=== PATIENT | female | born 1945 | race Caucasian/White ===

== ENCOUNTER 2020-02-24 17:01 | Inpatient (IN) | payer MEDICARE, BC ==
[~2020-02-24] VITALS: Ht 165.1 cm; Wt 61.8 kg
[2020-02-24] MEDS ORDERED: ALPRAZOLAM 0.50.5 M1 PO (18:01)
[2020-02-24] MEDS ORDERED: AMITRIPTYLINE H50 M2 PO (18:02)
[2020-02-24] MEDS ORDERED: ASA81BEC PO (18:03)
[2020-02-24] MEDS ORDERED: LIPITOR80 MG PO (18:04)
[2020-02-24] MEDS ORDERED: PLAVIX 75 MG TA75 MG PO (18:04)
[2020-02-24] MEDS ORDERED: LUNESTA3 MG PO (18:05)
[2020-02-24] MEDS ORDERED: HYDROCHLOROTHIA25 M2 PO (18:06)
[2020-02-24] MEDS ORDERED: COZAAR 25 MG TA25 M1 PO (18:07)
[2020-02-24] MEDS ORDERED: OXYCODONE HCL10 MG PO (18:09)
[2020-02-24] MEDS ORDERED: PROTONIX40 M2 PO (18:10)
[2020-02-24] MEDS ORDERED: FLOMAX0.4 MG PO (18:11)
[2020-02-24] MEDS ORDERED: TIZANIDINE HCL4 M1 PO (18:12)
[2020-02-24 20:00] VITALS: BP 154/93
[2020-02-25 04:46] LABS: HEMATOCRIT 37.6 % (37.0-47.0); HEMOGLOBIN 12.4 gm/dL (12.0-15.0); MCH 29.2 pg (26.0-34.0); MCV 88.5 fL (80.0-100.0); MPV 7.2 fl. (7.2-11.1); RBC 4.25 mil/uL (4.20-5.00); WBC 12.7 thou/uL (4.0-11.0)
[2020-02-25 05:10] LABS: CALCIUM 9.4 mg/dL (8.5-10.1); CREATININE 0.7 mg/dL (0.6-1.3); POTASSIUM 3.9 mmol/L (3.5-5.1)
--- NOTE | 2020-02-25 05:34 | NUR ---
PT ARRIVED VIA FROM [facility] AT 1915. ALERT AND ORIENTED X 1 AND FORGETFUL. ANXIOUS AT TIMES. CVA WITH LEFT SIDE WEAKNESS. PT WANTS PILLS CRUSHED IN APPLESAUCE. MAX ASSIST X 2 PERSON. NEEDS CUEING TO MOVE LEFT LEG. UP WITH WALKER TO [facility] X 1. VOIDED AND HAD LARGE SOFT BM. PULLUPS. PT HAS CHRONIC POST CONCUSSIVE HEADACHE. SCHEDULED MEDS GIVEN. SPOKE WITH AND INFORMED OF ARRIVAL. QUESTIONS ANSWERED. PT SLEPT MOST OF THE NIGHT. USING CALL LIGHT APPROPRIATELY. BED ALARM ON.
[2020-02-25 07:50] VITALS: BP 106/60
--- NOTE | 2020-02-25 10:11 | NUR ---
Nutrition: Pt admitted to rehab with CVA. Wt: 133#, pt stated UBW is ~131#. Heart Healthy diet. Pt stated she is eating well. stated they don't moreau foods, they eat mainly fresh. We discussed the Mediterranean, anti-inflammatory, heart healthy diets with handouts. agreeable to info. No albumin recorded. Consider mild risk. Will follow weekly.
--- NOTE | 2020-02-25 14:27 | NUR ---
INITIAL ASSESSMENT: PATIENT ADMITTED TO THE [facility] ON 02/24/20 WITH A DIAGNOSIS OF RIGHT CVA. PT HAS HX OF DEMENTIA. PT'S SPOUSE INFORMS THAT PRIOR TO ADMIT PT WAS INDEPENDENT WITH ADL'S. PT USED A WALKER OR CANE FOR MOBILITY 'SHE USUALLY USED A WALKER IN THE MORNING AND CANE IN THE AFTERNOON. PT HAS PAST HX OF HH WITH [facility] AT HOME. PT HAS HX OF SNF AT [facility]. CM ORIENTED PT AND SPOUSE TO THE REHAB UNIT AND PROCESSES, RESIDENTS RIGHTS INFO, TEAM CONFRENCE, AND TO THE ROLE OF CM. CM WILL REMAIN AVAILABLE TO ASSIST AND FOLLOW NEEDED.
--- NOTE | 2020-02-25 16:23 | NUR ---
PATIENT COMPLETED THERAPIES ORDERED. UP WITH 2, GAIT BELT AND A WALKER; PATIENT NOTED TO DRAG LEFT LEG WHEN UP. PATIENT VOIDED 525MLS AT 1145 THIS AFTERNOON WHILE WORKING WITH OT. PATIENT WAS PLACED BACK ON BSC THIS AFTERNOON BUT STATED AT THE TIME SHE COULD NOT VOID. BLADDER SCAN SHOWING 295MLS AT 1600. DR. PERRIN NOTIFIED THIS AM OF RIGHT RIB PAIN AND LEFT AC SWELLING FROM WHAT PATIENT STATED WAS A PREVIOUS IV SITE. ORDERS FOR XRAY TO BE DONE, XRAY HERE THIS EVENING TO COMPLETE. SCHED XANAX AND OXY IR GIVEN ORDERED. HERE THIS SHIFT, DPOA/ADVANCE DIRECTIVE PAPERS BROUGHT IN AND PLACED ON CHART.
[2020-02-25 20:15] VITALS: BP 167/91
[2020-02-25 21:30] VITALS: BP 136/77
--- NOTE | 2020-02-26 01:23 | NUR ---
AT 2030, PT HAD EPISODE OF PSEUDOSEIZURE. PT HAD BLANK STARE AND WAS SLOW TO RESPOND. PT IMMEDIATELY HAD TREMORS AND SHAKING TO ARMS, BUT MOSTLY RIGHT ARM. NO OTHER SYMPTOMS AROSE. PRECAUTIONS TAKEN. TREMORS LASTED 15-20 MINUTES. PT SLOWLY IMPROVED AND FELT BETTER. CONTACTED PER PT REQUEST. STATES THAT PT HAS THESE WEEKLY AND MAY BE TRIGGERED BY PAIN. PT HAD C/O MARTINEZ AND RIGHT RIB PAIN JUST PRIOR TO THIS EPISODE. PT CLOSELY OBSERVED FOR SHORT TIME AND THEN GIVEN XANAX AND OXY. NO FURTHER ISSUES AFTER FEELING BETTER. DR ANAND WAS NOTIFIED OF OCCURANCE. PT RESTING AT THIS TIME. WILL CONTINUE TO MONITOR.
--- NOTE | 2020-02-26 05:33 | NUR ---
ASSUMED CARES AT 1920. ALERT AND ORIENTED BUT CAN BE ANXIOUS AND FORGETFUL. PT REQUESTS THAT PILLS BE CRUSHED IN APPLESAUCE. MOD ASSIST WITH GAIT BELT. CUEING NEEDED TO MAINTENANCE TEAM MEMBER LEFT FOOT WITH TRANSFERS. UP TO BSC. SLEPT WELL REST OF THE NIGHT. CALL LIGHT IN REACH AND BED ALARM ON.
[2020-02-26 08:00] VITALS: BP 103/66
[2020-02-26 14:22] LABS: ABSOLUTE BASOPHILS 0.1 thou/uL (0.0-0.2); ABSOLUTE EOSINOPHILS 0.2 thou/uL (0.0-0.7); ABSOLUTE LYMPHOCYTES 1.6 thou/uL (0.8-5.3); ABSOLUTE MONOCYTES 0.8 thou/uL (0.0-1.2); ABSOLUTE NEUTROPHILS 12.2 thou/uL (1.6-8.1); BASOPHILS 0.6 %; EOSINOPHILS 1.6 %; HEMATOCRIT 38.6 % (37.0-47.0); HEMOGLOBIN 12.7 gm/dL (12.0-15.0); LYMPHOCYTES 10.4 %; MCH 29.4 pg (26.0-34.0); MCHC 32.9 g/dL (28.0-37.0); MCV 89.4 fL (80.0-100.0); MONOCYTES 5.4 %; MPV 7.4 fl. (7.2-11.1); NUCLEATED RBCS 0 /100WBC; PLATELET COUNT* 470 thou/uL (150-400); RBC 4.32 mil/uL (4.20-5.00); RDW-CV 15.1 % (10.5-14.5); WBC 14.9 thou/uL (4.0-11.0)
[2020-02-26 14:46] LABS: CALCIUM 9.3 mg/dL (8.5-10.1); CREATININE 0.8 mg/dL (0.6-1.3); POTASSIUM 4.1 mmol/L (3.5-5.1)
--- NOTE | 2020-02-26 16:09 | NUR ---
ASSUMED CARE OF PATIENT THIS AM AT APOXIMATELY 0915. AGREE WITH AM ASSESSMENT.
--- NOTE | 2020-02-26 16:22 | NUR ---
ALERT AND ORIENTED X4 WITH PERIODS OF FORGETFULNESS. UP WITH MAX ASSIST OF 1 GAIT BELT AND WALKER. ON SCHEDULED PAIN MED TO HELP WITH PAIN. MEDICATION GIVEN FOR CONSTIPATION WITH NO RESULTS YET. C/O NAUSEA AND NEW NAUSEA MEDICATION GIVEN AND HELPFUL. DR NOTIFIED OF ABNORMAL LAB RESULTS. CALL LIGHT WITHIN REACH. FALL PRECAUTIONS IN PLACE BED ALARM AND CHAIR ALARM USED.
[2020-02-26 20:30] VITALS: BP 123/66
--- NOTE | 2020-02-26 20:30 | NUR ---
VERY ANXIOUS, NEEDY AND DEMANDING. VOMITED SMALL AMOUNT OF PARTIALLY DIGESTED FOOD. CALL LIGHT WITHIN REACH. PATIENT STATES DOESN'T KNOW HOW TO USE THE CALL LIGHT AND DOESN'T KNOW HOW TO USE THE TV REMOTE. PATIENT INSTRUCTED ON HOW TO USE THE CALL LIGHT AND TV REMOTE. STATES RIGHT RIB PAINT AT A "8".
[2020-02-26 21:53] LABS: URINE BILIRUBIN NEGATIVE (Negative); URINE BLOOD 1+ (Negative); URINE CLARITY CLOUDY; URINE COLOR YELLOW; URINE GLUCOSE-RANDOM NEGATIVE (Negative); URINE KETONES NEGATIVE (Negative); URINE LEUKOCYTES-REFLEX 3+ (Negative); URINE NITRITE-REFLEX POSITIVE (Negative); URINE PROTEIN NEGATIVE (Negative); URINE UROBILINOGEN 0.2 E.U./dl (0.2-1.0)
[2020-02-26 21:58] LABS: SQUAMOUS 0-3 Few /LPF (0-3)
[2020-02-26 21:59] LABS: BACTERIA-REFLEX >30 Many /HPF (None Seen); CASTS None Seen /LPF (None Seen); CRYSTALS None Seen /LPF (None Seen); URINE RBC 0-2 Rare /HPF (0-2); URINE WBC-REFLEX >25 Many /HPF (0-5)
--- NOTE | 2020-02-27 05:20 | NUR ---
NO MORE NAUSEA/VOMITING. UP X ONE DURING THE NIGHT TO THE BESIDE COMMODE. HOURLY ROUNDING IN PROGRESS.
[2020-02-27 08:28] VITALS: BP 143/72
--- NOTE | 2020-02-27 13:24 | CON ---
[address] [address] CONSULTATION Name: AL QUEZADA Room: [address] IN ..#: [id number] Admission: 02/24/20 Attend Phys: Emanuel Arnold MD Discharge: Date of : 41 Report #: [id number] THIS REPORT FOR: cc: Freedom Fletcher MD, Anthony MD ~ Pallavi Alaniz DO NEUROLOGY CONSULT HISTORY OF PRESENT ILLNESS: The patient is a 74-year-old female who was initially seen at [place] for stroke. She woke on 02/20 with severe headache, left-sided facial numbness, left upper and lower extremity weakness. She was taken to [place] [facility]. She was not given t-PA given the timeframe of the symptoms. After the stroke workup was completed, she was transferred to rehabilitation at [facility] for therapy. Neurology was asked to see this patient because she has a history of pseudoseizures. She takes Xanax for this. Apparently, she also has a history of dementia. PAST MEDICAL HISTORY: Stroke, postconcussive headaches, gastroparesis, posttraumatic stress disorder, dementia, pseudoseizures, C. difficile, claustrophobia. PAST SURGICAL HISTORY: Cholecystectomy, hysterectomy, appendectomy, right hip surgery, mastoid surgery, cataract surgery. MEDICATIONS: Amitriptyline 50 mg at bedtime, aspirin 81 mg daily, atorvastatin 80 mg at bedtime, Plavix 75 mg daily, Colace 100 mg b.i.d., Voltaren gel p.r.n., hydrochlorothiazide 25 mg daily, lidocaine patch at bedtime, losartan 25 mg daily, oxycodone 20 mg q.i.d., pantoprazole 40 mg daily, MiraLax 17 grams b.i.d., tamsulosin 0.4 mg daily, tizanidine 4 mg b.i.d., alprazolam 0.5 mg q.i.d., Ambien 5 mg at bedtime. ALLERGIES: CHOLESTYRAMINE, CHLORDIAZEPOXIDE, AMOXICILLIN, ACETAMINOPHEN, AMITRIPTYLINE, AMPICILLIN, CETIRIZINE, CIPROFLOXACIN, CLINDAMYCIN, DIPHENHYDRAMINE, ERYTHROMYCIN, FEXOFENADINE, METHYLPREDNISOLONE, OXYCODONE, PAROXETINE, SUMATRIPTAN AND TOPIRAMATE. PHYSICAL EXAMINATION: VITAL SIGNS: Temperature is 36.7, pulse rate 92, respiratory rate 16, blood pressure 103/66, bedside pulse oximetry 94% on room air. LABORATORY DATA: Hematology: White blood cell count 12.7, hemoglobin 12.4, hematocrit 37.6, MCV 88.5, platelet count 432,000. Chemistry: Sodium 137, potassium 3.9, chloride 101, carbon dioxide 31, BUN 10, creatinine 0.7, GFR 81, [place] [id number] CONSULTATION Name: AL QUEZADA Room: [address] IN [facility]#: [id number] Admission: 02/24/20 Attend Phys: Emanuel Arnold MD Discharge: Date of : 41 Report #: [id number] glucose 106, calcium 9.4. NEUROLOGIC EXAMINATION: Cranial nerves 2-12 were grossly intact. Motor exam demonstrates a relative left hemiparesis. She had decreased fine finger movements on the left and appeared to have general weakness in the left upper extremity from the shoulder to the hand. In the lower extremity, she was able to raise the right leg off the bed. She did not raise the left leg off the bed, but this was effort related. As I placed my hand under both heels and she made no attempt to press her right heel into the bed as she tried to lift her left leg. Reflexes are symmetrical throughout. The right plantar response flexor. The left is mute. Coordination demonstrated no evidence of dysmetria. Gait was not tested because of safety reasons. IMPRESSION: This patient is status post stroke and is currently on a combination of aspirin and Plavix, which she should continue. Neurology was consulted for her history of pseudoseizures. These are typically a subconscious manifestation of stress. I tried to call her for more information, but no one picked up the home phone, so I did not leave a message. I did review the records from [place], which stated that she had a history of pseudoseizures, but this was treated with Xanax, which she is currently taking here in the hospital. For these episodes, I do not recommend anything further than what she is taking, Xanax 0.5 mg 4 times a day. Should she have any episodes, please feel free to call the Neurology service and we can reevaluate her at that time. Please understand that pseudoseizures or nonepileptic events are not true electrical seizures, but typically a subconscious manifestation of stress, which in this case may be compounded by the patient's history of dementia. I thank you for your kind referral of the patient and we will follow her as needed. <ELECTRONICALLY SIGNED> By: Pallavi Alaniz DO 02/27/20 [id number] Doug Alaniz DO /nt
--- NOTE | 2020-02-27 18:17 | NUR ---
ASSESSMENT COMPLETED DOCUMENTED THIS MORNING. PATIENT WAS OBSERVED WITH THERAPY THIS MORNING. MULTIPLE TIMES THE THERAPIST REQUESTED PATIENT TO STAND OR EVEN DO SITTING EXERCISES SHE WOULD CLOSE HER EYES AND NOT RESPOND, ACTING THOUGH SHE WERE ASLEEP. THERAPY HAD PATIENT IN THE WC ON THE WAY TO THE GYM AND SHE STOPPED COOPERATING AND CLOSED HER EYES. THERAPY WAS SHAKING HER SHOULDER AND SPEAKING HER NAME LOUDLY, NURSING WAS CALLED TO ASSESS AND REPEATED SHAKING HER SHOULDER AND SPEAKING HER NAME LOUDLY. PATIENT MUTTERED WITH HER EYES CLOSED...YOU AREN'T GOING TO GET ME TO RESPOND BY BEING MEAN TO ME, I HAVE SEIZURES YOU NEED TO SPEAKK TO DENICE. NURSING INSTRUCTED HER THAT WHEN SOMEONE APPEARS TO BE UNRESPONSIVE WE SHAKE AND SHOUT. SHE APOLOGIZED FOR HER BEHAVIOR AND WAS TAKEN TO HER ROOM. VS 120/75-89-95% PATIENT C/O NAUSEA AND WAS OBSERVED WRETCHING PRIOR TO SUPPER. ZOFRAN 4MG WAS GIVEN AT 1700. HAS BEEN TAKING A BOTTLE OF MAG CITRATE SLOWLY TO FACILITATE A BOWEL MOVEMENT OVER THE PAST 1-2 HOURS.
[2020-02-27 20:00] VITALS: BP 112/82
--- NOTE | 2020-02-28 05:02 | NUR ---
ASSUMED PT CARE AT 1930. PT AWAKE AND ALERT TO SELF, VERY FORGETFUL. PT CALLED OUT OVER A DOZEN TIMES IN THE FIRST TWO HOURS OF THE SHIFT. SPITTING UP SMALL AMOUNTS OF EMESIS INTO BLUE BAG. ZOFRAN GIVEN. PT HAD THREE LARGE LIQUID STOOLS. UP TO BSC WITH ASSIST OF ONE, GAIT BELT AND WALKER. NEEDS CUEING TO MOVE HER FEET AND WHICH WAY TO TURN TO GET ON COMMODE AND BACK INTO BED. PT EXTREMELY ANXIOUS AND NEEDY, BECAME MORE RATIONAL THE NIGHT PROGRESSED. PT ASKS THE SAME QUESTIONS REPETITIVELY WHICH HAVE JUST BEEN ANSWERED. C/O PAIN IN HEAD AND RIBS 09/27 AT HS. ON SCHEDULED OXY IR AND XANAX. USES CALL LIGHT APPROPRIATELY. CALL LIGHT IN REACH, BED ALARM ON FOR SAFETY. HOURLY ROUNDING IN PROGRESS, WILL CONTINUE TO MONITOR.
[2020-02-28 07:30] VITALS: BP 115/58
--- NOTE | 2020-02-28 18:49 | NUR ---
ASSESSMENT COMPLETED DOCUMENTED THIS MORNING. PATIENT HAS BEEN UP IN RECLINER AT THE BEDSIDE X2 TODAY AND TOLERATED WELL. HAS USED THE BSC FOR TOILETING AND REMAINED CONT OF B&B WITH SMALL AMOUNT OF STOOL EACH TIME SHE HAS VOIDED TODAY. PATIENT STATES SHE FEELS MUCH BETTER TODAY SINCE HER BOWELS MOVED SO WELL LAST NIGHT. NO BEHAVIOR ISSUES, HAS BEEN COOPERATIVE AND APPROPRIATE, AT BEDSIDE.
[2020-02-28 20:00] VITALS: BP 105/61
--- NOTE | 2020-02-29 05:02 | NUR ---
ASSUMED PT CARE AT 1930. PT ALERT AND ORIENTED BUT FORGETFUL. HX OF CVA, LEFT SIDED WEAKNESS. PT SITTING IN RECLINER AT SHIFT CHANGE. UP WITH ASSIST OF ONE, GAIT BELT AND WALKER TO [facility] TO VOID. STOOL X1 THIS SHIFT, CONTINENT OF BOWEL AND BLADDER. TAKES PILLS WHOLE IN APPLESAUCE WITHOUT DIFFICULTY. PT TO SLEEP BY 2100 AND SLEPT WELL UNTIL 0300. PT AWAKENED STATING SHE COULDN'T BREATHE AND THAT SHE WAS HAVING A PANIC ATTACK. PT PLACED ON 2L 02 PER NC. VITAL SIGNS 124/96, HR 73. DR. SALAZAR CONTACTED, ORDER RECEIVED TO GIVE 0730 DOSE OF XANAX EARLY. PT SPOKE WITH HER ON THE PHONE AND AFTER TAKING THE XANAX WENT BACK TO SLEEP. CALL LIGHT IN REACH, BED ALARM ON FOR SAFETY. HOURLY ROUNDING IN PROGRESS, WILL CONTINUE TO MONITOR.
[2020-02-29 08:00] VITALS: BP 136/70
--- NOTE | 2020-02-29 14:40 | NUR ---
CM SPOKE TO THE PT AND HER SPOUSE TO DISUCSS ANY QUESTIONS OR CONCERNS THAT THEY MAY HAVE FOR THIS WEEKS TEAM CONFRENCE MEETING. PT AND SPOUSE HAVE NO QUESTIONS OR CONCERNS AT THIS TIME, BUT INFORM THAT ARE HAPPY WITH THE STAFF AND THE PROGRESS THE PT HAS MADE. CM AND PHYSISCIAN TO F/U WITH PT AND SPOUSE AFTER SATURDAY'S MEETING. CM WILL REMAIN AVAILABLE TO ASSIST AND FOLLOW NEEDED.
--- NOTE | 2020-02-29 16:40 | NUR ---
ALERT AND ORIENTED X4 WITH PERIODS OF FORGETFULNESS. UP WITH 1 ASSIST, GAIT BELT AND WALKER. ON SCHEDULED PAIN MEDICATION AND XANAX. CONTINENT OF BOWEL AND BLADDER. HAD 1 LOOSE STOOL TODAY. NAUSEA MEDICATION GIVEN X1 AND HELPFUL. TAKES PILLS WHOLE 1 AT A TIME IN APPLESAUCE. USES CALL LIGHT FOR ASSIST. FALL PRECAUTIONS IN PLACE. BED ALARM AND CHAIR ALARM USED.
[2020-02-29 19:00] VITALS: BP 125/66
--- NOTE | 2020-03-01 05:20 | NUR ---
ASSUMED PT CARE AT 1930. PT ALERT AND ORIENTED BUT FORGETFUL. PT UPSET AT BEGINNING OF SHIFT BECAUSE HER HAD TO GO HOME. PT REASSURED AND NO FURTHER PANIC ATTACKS. TAKES PILLS WHOLE WITH APPLESAUCE. SCHEDULED OXY IR AND XANAX. UP WITH ASSIST OF 1, GAIT BELT AND WALKER TO VOID. NO STOOL THIS SHIFT. C/O HEARTBURN AT HS, [place] GIVEN. USES CALL LIGHT FOR ASSIST. CALL LIGHT IN REACH, BED ALARM ON FOR SAFETY. HOURLY ROUNDING IN PROGRESS, WILL CONTINUE TO MONITOR.
[2020-03-01 07:50] VITALS: BP 144/76
[2020-03-01 16:15] VITALS: BP 124/84
--- NOTE | 2020-03-01 16:45 | NUR ---
PATIENT COMPLETED THERAPIES ORDERED. TELE PSYCH EVAL FOR PANIC ATTACKS, RECOMMENDATIONS MADE AND Christoph ROSALES NP NOTIFIED AND ORDERS RECEIVED. PATIENT HERE THIS SHIFT, PATIENT CALLING OUT AT 1600 STATING SHE COULDNT BREATH. PATIENT STATED TO NURSE SHE WAS HAVING A PANIC ATTACK. VITALS STABLE AND PATIENT GIVEN SCHED XANAX/ OXY IR. PATIENT STATED SHE DIDNT KNOW WHY SHE WAS PANICKING WHEN HER WAS STILL HERE. PATIENT DISTRACTED AND SITTING UP IN CHAIR WITH . NO BM NOTED THIS SHIFT. VOIDING VIA BSC. PATIENT C/O VAGINA BEING SORE LIKE SHE HAD A CUT, PATIENT INFORMED THAT WHEN SHE GOT BACK INTO BED THAT NURSE WOULD OBSERVE. PATIENT CONCERNED ABOUT TIME OF NEW MED. Christoph ROSALES NP NOTIFIED AND ORDERS FOR ONE TIME VISTARIL TO BE GIVEN AT 1800, PATIENT AND UPDATED ON PLAN OF CARE.
[2020-03-01 21:00] VITALS: BP 114/75
[2020-03-02 04:16] LABS: HEMATOCRIT 34.3 % (37.0-47.0); HEMOGLOBIN 11.6 gm/dL (12.0-15.0); MCH 29.6 pg (26.0-34.0); MCHC 33.7 g/dL (28.0-37.0); MCV 87.7 fL (80.0-100.0); MPV 7.7 fl. (7.2-11.1); RBC 3.91 mil/uL (4.20-5.00); RDW-CV 14.2 % (10.5-14.5); WBC 8.8 thou/uL (4.0-11.0)
[2020-03-02 04:59] LABS: CALCIUM 9.3 mg/dL (8.5-10.1); CREATININE 0.8 mg/dL (0.6-1.3); POTASSIUM 4.1 mmol/L (3.5-5.1)
--- NOTE | 2020-03-02 05:47 | NUR ---
ASSUMED CARES AT 1920. ALERT AND ORIENTED BUT CAN BE FORGETFUL. NEEDY AND CAN EASILY GET ANXIOUS. PT SPENT BEGINNING OF NIGHT WITH NAUSEA AND BELCHING. HAD FEW EMESIS OF 50-100 CC OF UNDIGESTED FOOD. ZOFRAN GIVEN WITH LITTLE RELIEF. OBTAINED ORDER FOR PHENERGAN. PT FINALLY ABLE TO SETTLE DOWN AND SLEPT AT MIDNIGHT. WOKE UP FEW HRS LATER TO VOID AND STILL HAD NAUSEA. MIN ASSIST WITH GAIT BELT UP TO BSC. NEEDS ASSIST WITH DRESSING. LEFT LEG WEAKNESS IMPROVING. LEFT HAND STILL WEAK TO GRASP ITEMS. PT C/O SORENESS AND BURNING TO VAGINAL/LABIA AREA WITH VOIDING. NO OPEN SORES SEEN. BARRIER CRM APPLIED FOR COMFORT. PT SLEPT OTHERWISE. CALL LIGHT IN REACH AND BED ALARM ON.
[2020-03-02 07:40] VITALS: BP 115/64
--- NOTE | 2020-03-02 17:48 | NUR ---
PATIENT COMPLETED THERAPIES ORDERED. SCHED XANAX AND OXY IR GIVEN ORDERED. PATIENT MORE TIRED TODAY. AT BEDSIDE THIS SHIFT, PLAN OF CARE AND TEAM MEETING DISCUSSED WITH BY CM. PATIENT MORE CALM THIS SHIFT. MOM GIVEN. ZOFRAN GIVEN THIS SHIFT FOR NAUSEA, NO VOMITTING NOTED. PATIENT UP WITH ASSISTANCE OF 1 AND USE OF GAIT BELT AND WALKER.
[2020-03-02 20:00] VITALS: BP 117/69
--- NOTE | 2020-03-03 05:26 | NUR ---
ASSUMED CARE AT 1920L. SLEEPY BUT AWAKENS EASILY. FORGETFUL. C/O NAUSEA BUT NO VOMITING. ZOFRAN GIVEN. MIN ASSIST GB AND WALKER. UP TO BSC. PILLS WITH APPLESAUCE. C/O HEADACHE. SCHEDULED OXY GIVEN. SLEPT WELL. CALL LIGHT IN REACH AND BED ALARM ON.
[2020-03-03 09:29] VITALS: BP 110/52
--- NOTE | 2020-03-03 15:29 | NUR ---
TEAM CONFRENCE MEETING HELD YESTERDAY. CM AND PHYSICIAN SPOKE TO THE PT AND HER SPOUSE TO DISCUSS MEETING AND PLAN TO RE-TEAM AND HAVE THE PT REMAIN ON THE UNIT FOR ANOTHER WEEK TO CONTINUE THERAPIES. PT AND SPOUSE IN AGREEMENT WITH THE PLAN. PT PROGRESSING TOWARDS GOALS, BUT BARRIERS ARE LEFT HEMIPARESIS, DECREASED MENTAL PROCESSING, AND DIFFUSE WEAKNESS. CM WILL REMAIN AVAILABLE TO ASSIST AND FOLLOW NEEDED.
--- NOTE | 2020-03-03 18:52 | NUR ---
ASSESSMENT COMPLETED DOCUMENTED THIS MORNING. PATIENT PARTICIPATING WITH THERAPY, REQUIRES MUCH CUEING, REMINDING AND INSTRUCTING HER "WHAT HER GOAL IS" WHEN SHE IS TRANSFERRING OR TOILETING. DROWSY/LETHARGIC MOST OF THE TIME. NO S/S OF PANIC ATTACKS NOTED.
[2020-03-03 20:00] VITALS: BP 109/59
--- NOTE | 2020-03-04 06:50 | NUR ---
ASSUMED PT CARE AT 1930. PT SLEEPY BUT ANSWERS QUESTIONS APPROPRIATELY. TOOK PM MEDS WHOLE WITH APPLESAUCE. PT UP TO BSC TO VOID X1. NO STOOL THIS SHIFT. PT SLEPT WELL OVERNIGHT. LEFT ARM AND LEG WEAKNESS. PT NEEDS CUEING TO TRANSFER FROM BED TO COMMODE WITH ASSIST OF ONE, GAITBELT AND WALKER. USES CALL LIGHT APPROPRIATELY. CALL LIGHT IN REACH, BED ALARM ON FOR SAFETY. HOURLY ROUNDING COMPLETE.
[2020-03-04 08:00] VITALS: BP 108/62
--- NOTE | 2020-03-04 10:34 | NUR ---
PT VERY DROWSY THIS AM. DID NOT EAT BREAKFAST BUT TOOK ALL ORAL MEDS. UNABLE TO PARTICIPATE IN THERAPY. SPOUSE HERE. RE EVAL BY TELEPSYCH CALLED IN AND NEUROOLOGY CONSULT CALLED IN. MESSAGE SENT TO HOSPITALIST REGARDING PATIENT STATUS.
--- NOTE | 2020-03-04 10:34 | NUR ---
0700 ASSUMED CARE OF PATIENT. SEE DOCUMENTED ASSESSMENT. PT IS AWAKE AND WANTS SCHEDULED PAIN MEDICATION ALTHOUGH SHE DENIES PAIN.
--- NOTE | 2020-03-04 15:21 | NUR ---
PATIENT MORE AWAKE AND INTERACTIVE WITH SPOUSE. STATES SHE IS HUNGRY.
--- NOTE | 2020-03-04 17:26 | NUR ---
PATIENT HAS NOT PROGRESSED TOWARDS GOALS. PT BECAME VERY SOMNALENT AFTER SCHEDULED 0730 XANAX AND OXY IR. UNABLE TO PARTICIPATE WITH THERAPIES. DR BLOOM SPOKE WITH PSYCHIATRIST AND MEDS HAVE BEEN ADJUSTED. NEURO CONSULTED AND HE HAS ORDERED HEAD CT. IV FLUIDS INITIATED AND PATIENT IS NOW UP IN THE CHAIR AND USED BSC. SHE HAS NOT RECEIVED ANY ANALGESICS SINCE THE 0730 OXY IR. SCOPALAMINE PATCH ALSO DISCONTINUED. URINE IS VERY CLOUDY AND FOUL SMELLING. NO BM THIS SHIFT. PT REFUSED HER MIRALAX THIS MORNING. SPOUSE HAS BEEN PRESENT MOST OF THE DAY AND SPOKE WITH DR BAEZ AND DR BLOOM.
[2020-03-04 20:00] VITALS: BP 125/78
--- NOTE | 2020-03-05 01:18 | NUR ---
ASSUMED CARE AT 1930. PATIENT WENT TO CT AROUND 1999 PER W/C. THEN FROM W/C > BSC THEN TO BED. MAX ASSIST OF 2, MUCH CUEING, GAIT BELT WALKER. AFTER RETURNING FROM CT, BECAME ANXIOUS. GIVEN HS MEDS, SEE MAR. DURING HS MED PASS, PATIENT DENIED PAIN, SO OXY DELAYED. PATIENT LATER C/O NOT WANTING TO WITHDRAW FROM THE OXY AND INSISTED ON IT, C/O ANXIETY AND PAIN. SEE MAR. ALL MEDICINES GIVEN PER ORDER, SEE MAR. PATIENT REASSURED REPEATEDLY THAT SHE HAD TAKEN ALL HER MEDS PER PHYSICAN ORDERS. PATIENT SPOKE WITH . WAS AWAKE AT 2300 ROUNDS, BUT ASLEEP ON MIDINIGHT ROUNDS. IVF INFUSING TO LT WRIST, SEE MAR. TAKES PILLS WHOLE WITH APPLESAUCE FOLLOWED BY THIN LIQUIDS. PATIENT DOES TURNS SELF. CALL LITE IN REACH. BED ALARM ON. HOURLY ROUNDS CONTINUE.
--- NOTE | 2020-03-05 05:33 | NUR ---
OBSERVED SLEEPING AT MIDNIGHT ROUNDS UNTIL AWAKENED BY LAB. LAB UNABLE TO OBTAIN THIS AM LABS. IV INFILTRATED TO LT WRIST AND DISCONTINUED. PATIENT NOW ABLE TO DRINK WATER AND IS FULLY AWAKE. WILL NOTIFY PROVIDER. UP TO VOID, MUCH IMPROVED WITH TRANSFERS LATER IN SHIFT THAN AT BEGINNING. DOING OWN HYGIENE WITH VOIDING. VOIDS LARGE AMOUNTS. NO C/O PAIN AT THIS TIME. HOURLY ROUNDS CONTINUE. BED ALARM ON. CALL LITE IN REACH.
[2020-03-05 07:30] VITALS: BP 115/60
[2020-03-05 08:02] LABS: CALCIUM 8.7 mg/dL (8.5-10.1); CREATININE 0.7 mg/dL (0.6-1.3); POTASSIUM 3.1 mmol/L (3.5-5.1)
--- NOTE | 2020-03-05 16:21 | NUR ---
PATIENT COMPLETED THERAPIES ORDERED. PATIENT MORE ALERT AND AWAKE THIS AFTERNOON. NEURO HERE THIS AM AND DR. REINA MICHEL, PATIENT PLACED BACK ON SCHED XANAX AND DEPAKOTE DC'D. PATIENT AND AWARE OF PLAN OF CARE. UP TO BSC WITH ASSISTANCE OF 1 AND GAIT BELT AND WALKER. PATIENT DID ATTEMPT TO HAVE A BM BUT WAS UNSUCCESSFUL. POTASSIUM REPLACED VIA ELEC PROTOCOL FOR LAB VALUE OF 3.1, REDRAW AT 1945. AT BEDSIDE, VERY SUPPORTIVE.
[2020-03-05 19:00] VITALS: BP 128/56
--- NOTE | 2020-03-05 22:59 | NUR ---
ASSUMED CARE AT 1930. PATIENT IN RECLINER UNTIL ABOUT 1999. TAKES PILLS WHOLE A COUPLE AT A TIME IN APPLESAUCE. SHE REMOVED HER HEARING AIDES AND PLACED IN HER CONTAINER WHICH WAS PUT INTO A PLASTIC BAG AND KEPT AT BEDSIDE FOR SAFE KEEPING. TOOK ALL MEDS SCHEDULED UNTIL 2099. REQUESTED TO TAKE XANAX AT 2100 HER HOME ROUTINE. SEE APR. ASSISTED PATIENT IN USING PHONE TO CALL , COULD NOT DO THIS AFTER REPEATED ORAL INSTRUCTIONS OF DIALING 9 THEN THE NUMBER WITHOUT THE AREA CODE. STREET CLOTHES REMOVED AND ASSISTED INTO HOSPITAL GOWN AT . WEARING BRIEF. REFUSED TO HAVE CHUX UNDER HER, SAYING IT WAS A LUMP, LIKE "SERA AND THE PEA." VOIDED PER BSC, UP WITH CUEING, GAIT BELT, WALKER. ABLE TO GET LEGS INTO BED HERSELF. MEDICATED FOR PAIN WITH SCHEDULED OXYIR. SEE MAR. HOURLY ROUNDS CONTINUE. BED ALARM ON. CALL LITE IN REACH.
--- NOTE | 2020-03-06 05:52 | NUR ---
OBSERVED RESTING WITH EYES CLOSED ON ROUNDS AFTER ABOUT 2300. GENTLE SNORING RESPS NOTED AT TIMES. NO FURTHER C/O PAIN. TURNS SELF IN BED. HOURLY ROUNDS CONTINUE. BED ALARM ON. CALL LITE IN REACH.
[2020-03-06 07:50] VITALS: BP 120/54
--- NOTE | 2020-03-06 16:26 | NUR ---
PATIENT UP TO CHAIR THIS SHIFT. UP WITH ASSISTANCE OF 1-2 AND USE OF GAIT BELT AND WALKER. PATIENT NOTED TO BE WEAKER THIS SHIFT, DR. HUANG AWARE. PATIENT NOTED TO DENICE KNEES UP AND DOWN WHILE ATTEMPTING TO TRANSFER. PATIENT UNABLE TO VOID THIS AM AND INTO AFTERNOON. BLADDER SCAN SHOWING 446MLS, DR. HUANG AWARE AND PREVIOUS STANDING ORDER FOR STARIGHT CATH >800MLS. PATIENT WAS ABLE TO VOID VERY LARGE AMOUNT LATE THIS AFTERNOON AND SMALL BM NOTED. SCHED OXY IR HELD THIS AM AND 1200 DOSE, PATIENT WAS NOTED TO BE VERY SLEEPY. SCHED XANAX GIVEN THIS EVENING SCHEDULED. PILLS WHOLE IN APPLESAUCE.
[2020-03-06 19:54] VITALS: BP 120/63
--- NOTE | 2020-03-06 22:48 | NUR ---
ASSUMED CARE AT 1920. PATIENT IN RECLINER UNTIL AROUND 2030. UP WITH MUCH CUEING, GAIT BELT, WALKER. VOIDED CLOUDY URINE PER BSC AFTER WAITING A LONG TIME, WHICH SHE STATES IS HER NORMAL. TAKES PILLS A COUPLE AT A TIME WITH APPLESAUCE. TURNS SELF. C/O NOT BEING ABLE TO USE THE PHONE RIGHT, BUT WAS ACTUALLY HOLDING TV REMOTE, AND COULD NOT IDENTIFY THAT IT WAS THE REMOTE NOT THE PHONE AFTER REPEATED ATTEMPTS. THIS NURSE THEN CALLED HER USING HOSPITAL PHONE, GAVE UPDATE, AND PATIENT SPOKE WITH FOR A WHILE. ASKS SAME QUESTIONS OVER AND OVER. ASKS IF SHE HAD HER SLEEPING PILL, WHICH HAS BEEN DISCONTINUED DUE TO EXCESSIVE DAYTIME SLEEPINESS. DID RECEIVE HS XANAX AND ALL MEDICINES ALLOWED PER ORDER. SEE MAR. DEEP BREATHING EXERCISES PRACTICED WITH PATIENT FOR RELAXATION. WANTS SOME LIGHTS ON IN ROOM. CALL LITE IN REACH. BED ALARM ON. HOURLY ROUNDS CONTINUE.
--- NOTE | 2020-03-07 05:35 | NUR ---
OBSERVED SLEEPING ON HOURLY ROUNDS FROM 2300 UNTIL NOW. SHE FELL ASLEEP SHORTLY AFTER THIS NURSE WROTE PREVIOUS NOTE. POSITIONS SELF. NO C/O PAIN THROUGH NIGHT. CALL LITE IN REACH. BED ALARM ON. HOURLY ROUNDS CONTINUE.
[2020-03-07 07:33] LABS: CALCIUM 8.4 mg/dL (8.5-10.1); CREATININE 0.6 mg/dL (0.6-1.3); MAGNESIUM 1.9 mg/dL (1.8-2.4); POTASSIUM 3.5 mmol/L (3.5-5.1)
[2020-03-07 08:00] VITALS: BP 117/58
--- NOTE | 2020-03-07 14:20 | NUR ---
CM SPOKE TO THE PT AND HER SPOUSE TO DISUCSS ANY QUESTIONS OR CONCERNS THAT THEY MAY HAVE FOR THIS WEEKS TEAM CONFRENCE MEETING. PT AND SPOUSE HAVE NO QUESTIONS OR CONCERNS AT THIS TIME. CM TO F/U WITH THE PT AND HER SPOUSE TO DISCUSS PT'S PROGRESS WITH THERAPIES AFTER THIS WEEKS MEETING.
--- NOTE | 2020-03-07 15:09 | NUR ---
PATIENT VERY DROWSY THIS AM. DR ORDERED ANOTHER FOLLOW UP WITH TELEPSYCHIATRY. I TALKED TELEPSYCH DR AND THEN HE WANTED TO TALK WITH MEDICAL DR. HE WAS GIVEN DR SALAZAR'S NUMBER. FOLLOW UP PROGRESS NOTE IN PATIENTS CHART.
--- NOTE | 2020-03-07 16:23 | NUR ---
ALERT AND ORIENTED WITH PERIODS OF FORGETFULNESS. DENESI NEED FOR PAIN MEDICATION. UP WITH 1 ASSIST, GAIT BELT AND WALKER. PATIENT SEDATED THIS AM AND SOME OF MEDICATION HELD. AWAKE THIS AFTERNOON AND MEDICATIONS GIVEN. FOLLOW UP APPT WITH NEUROLGY AND TELEPSYCHIATRY TODAY. NO NEW ORDERS AT THIS TIME. HAD LOW NA LEVEL NOTIFIED AND NEW ORDER NOTED. CONTINENT OF BOWEL AND BLADDER. FALL PRECAUTIONS IN PLACE. BED ALARM AND CHAIR ALARM USED.
[2020-03-07 19:00] VITALS: BP 107/65
--- NOTE | 2020-03-08 05:01 | NUR ---
ASSUMED CARE AT 1919. ALERT BUT FORGETFUL. EARLY IN NIGHT PT HAD VOICED THAT SHE CAN GET SEPARATION ANXIETY WITHOUT HER THERE. AT 2144, PT HAD PANIC ATTACK DESPITE XANAX GIVEN 1 HOUR BEFORE. VITALS WNL. AFTER SHORT TIME PT SETTLED SOME BUT STILL ADMANANT ABOUT TAKING ANOTHER PRN XANAX. XANAX GIVEN AND PT SLEPT WITHOUT FURTHER ISSUES. THIS AM PT REMAINS FAIRLY DROWSY. MOD ASSIST WITH GAIT BELT AND WALKER. NEEDS MUCH CUEING WITH TRANSFERS. UP TO BSC. CALL LIGHT IN REACH AND BED ALARM ON.
[2020-03-08 05:48] LABS: HEMATOCRIT 32.2 % (37.0-47.0); HEMOGLOBIN 10.9 gm/dL (12.0-15.0); MCH 29.8 pg (26.0-34.0); MCHC 33.8 g/dL (28.0-37.0); MCV 88.3 fL (80.0-100.0); MPV 7.8 fl. (7.2-11.1); RBC 3.64 mil/uL (4.20-5.00); RDW-CV 14.4 % (10.5-14.5); WBC 9.6 thou/uL (4.0-11.0)
[2020-03-08 06:09] LABS: ALBUMIN 2.7 g/dL (3.4-5.0); CALCIUM 8.6 mg/dL (8.5-10.1); CREATININE 0.8 mg/dL (0.6-1.3); MAGNESIUM 2.2 mg/dL (1.8-2.4); POTASSIUM 3.9 mmol/L (3.5-5.1); TOTAL BILIRUBIN 0.2 mg/dL (<0.1-1.0)
[2020-03-08 08:30] VITALS: BP 149/83
--- NOTE | 2020-03-08 18:32 | NUR ---
ALERT AND ORIENTED WITH PERIODS OF FORGETFULNESS. UP WITH 1 ASSIST, GAIT BELT AND WALKER. REMAINS ON SCHEDULED PAIN AND ANXIETY MEDICATION. CONTINENT OF BOWEL AND BLADDER. TAKES PILLS WHOLE IN APPLE SAUCE. USES CALL LIGHT FOR ASSIST. FALL PRECAUTIONS IN PLACE. BED ALARM AND CHAIR ALARM USED.
[2020-03-08 19:00] VITALS: BP 99/56
[2020-03-09 03:59] LABS: HEMATOCRIT 29.9 % (37.0-47.0); HEMOGLOBIN 10.3 gm/dL (12.0-15.0); MCH 30.3 pg (26.0-34.0); MCHC 34.4 g/dL (28.0-37.0); MPV 7.8 fl. (7.2-11.1); RBC 3.4 mil/uL (4.20-5.00); RDW-CV 14.3 % (10.5-14.5); WBC 9.7 thou/uL (4.0-11.0)
[2020-03-09 04:15] LABS: CALCIUM 8.7 mg/dL (8.5-10.1); CREATININE 0.8 mg/dL (0.6-1.3); MAGNESIUM 2.1 mg/dL (1.8-2.4)
--- NOTE | 2020-03-09 05:53 | NUR ---
ASSUMED PT CARE AT 1930. PT ALERT BUT FORGETFUL. POLITE AND COOPERATIVE WITH CARES. PT UP TO BSC TO VOID X2. UP THIS AM TO BSC WITH MAX ASSIST, GAIT BELT AND WALKER TO HAVE STOOL. PT NEEDS EXTENSIVE CUEING FOR TRANSFERS. NO PANIC ATTACK LAST EVENING, PT SLEPT WELL OVERNIGHT. HAS HARSH, DEEP COUGH THIS MORNING, PER PT THE COUGH STARTED YESTERDAY. ON SCHEDULED PAIN AND ANTI- ANXIETY MEDICATIONS. CALL LIGHT IN REACH, BED ALARM ON FOR SAFETY. HOURLY ROUNDING IN PROGRESS, WILL CONTINUE TO MONITOR.
[2020-03-09 08:23] VITALS: BP 112/54
--- NOTE | 2020-03-09 18:35 | NUR ---
ASSESSMENT COMPLETED DOCUMENTED THIS MORNING. PATIENT CONTINUES TO PROGRESS WITH THERAPY. K+ 3.0 AT 1300 AFTER 2 DOSES OF 40 mEq K+. 40 GIVEN AGAIN THIS AFTERNOON. IN TO VISIT THIS AFTERNOON AND BROUGHT DINNER FOR PATIENT. PATIENT HAS REMAINED CONTINENT ALL DAY OF BOWEL AND BLADDER REQUESTING THE BSC WHEN TOILETING IS NEEDED.
--- NOTE | 2020-03-09 18:53 | NUR ---
ASSESSMENT COMPLETED DOCUMENTED THIS MORNING. PATIENT CONTINUES TO PROGRESS SLOWLY WITH THERAPIES. TRANSFERRING WITH ONE ASSIST TO BSC TO VOID AND HAS BEEN CONT TODAY. AT BEDSIDE FOR SUPPORT. NO ISSUES OR CHANGES IN CONDITION NOTED.
[2020-03-09 19:52] VITALS: BP 101/59
[2020-03-10 04:03] LABS: HEMATOCRIT 27.6 % (37.0-47.0); HEMOGLOBIN 9.3 gm/dL (12.0-15.0); MCH 29.5 pg (26.0-34.0); MCHC 33.7 g/dL (28.0-37.0); MCV 87.6 fL (80.0-100.0); MPV 7.7 fl. (7.2-11.1); RBC 3.15 mil/uL (4.20-5.00); RDW-CV 14.4 % (10.5-14.5); WBC 12.5 thou/uL (4.0-11.0)
[2020-03-10 04:19] LABS: CALCIUM 8.4 mg/dL (8.5-10.1); CREATININE 0.7 mg/dL (0.6-1.3); POTASSIUM 4.6 mmol/L (3.5-5.1)
--- NOTE | 2020-03-10 06:35 | NUR ---
ASSUMED PT CARE AT 1930. PT ALERT AND ORIENTED, POLITE AND COOPERATIVE WITH CARES. SCHEDULED PAIN AND ANXIETY MEDS GIVEN PER APR. PT SLEPT WELL OVERNIGHT, USES CALL LIGHT APPROPRIATELY. PT UP TO BSC TO VOID X3, MUCH IMPROVED OVER PREVIOUS NIGHT, TRANSFERED WITH MOD ASSIST OF ONE. PT DID OWN PERICARE. PT COMPLAINED OF BURNING UPON URINATION AFTER LAST VOID. ORDER ENTERED FOR URINALYSIS. NO COUGHING THIS SHIFT. CALL LIGHT IN REACH, BED ALARM ON FOR SAFETY. HOURLY ROUNDING COMPLETE.
[2020-03-10 07:46] VITALS: BP 111/50
[2020-03-10 09:37] LABS: URINE BILIRUBIN NEGATIVE (Negative); URINE BLOOD 1+ (Negative); URINE CLARITY CLEAR; URINE COLOR YELLOW; URINE GLUCOSE-RANDOM NEGATIVE (Negative); URINE KETONES NEGATIVE (Negative); URINE NITRITE-REFLEX NEGATIVE (Negative); URINE PROTEIN NEGATIVE (Negative); URINE SPECIFIC GRAVITY <= 1.005 (1.005-1.030); URINE UROBILINOGEN 0.2 E.U./dl (0.2-1.0)
[2020-03-10 10:02] LABS: BACTERIA-REFLEX >30 Many /HPF (None Seen); CASTS None Seen /LPF (None Seen); CRYSTALS None Seen /LPF (None Seen); SQUAMOUS 0-3 Few /LPF (0-3); URINE LEUKOCYTES-REFLEX 3+ (Negative); URINE RBC 0-2 Rare /HPF (0-2); URINE WBC-REFLEX 6-15 Few /HPF (0-5)
--- NOTE | 2020-03-10 18:33 | NUR ---
ASSESSMENT COMPLETED DOCUMENTED THIS MORNING. UA OBTAINED TODAY AND PATIENT WAS STARTED ON KEFLEX 500MG R/T POSITIVE UA RESULTS. PROGRESSING VERY WELL WITH THERAPY TODAY AND IS NOW AMBULATING TO AND FROM THE BATHROOM WITH SBA.
[2020-03-10 20:00] VITALS: BP 126/65
[2020-03-11 05:03] LABS: CALCIUM 8.9 mg/dL (8.5-10.1); CREATININE 0.7 mg/dL (0.6-1.3); POTASSIUM 4.8 mmol/L (3.5-5.1)
--- NOTE | 2020-03-11 05:53 | NUR ---
ASSUMED CARES AT 1920. ALERT AND ORIENTED BUT FORGETFUL. C/O MARTINEZ PAIN. PAIN MEDS GIVEN. PILLS WHOLE IN APPLESAUCE. MIN ASSIST WITH GAIT BELT AND WALKER. UP TO BATHROOM. SLEPT WELL. CALL LIGHT IN REACH AND BED ALARM ON.
[2020-03-11 08:07] VITALS: BP 128/72
--- NOTE | 2020-03-11 16:15 | NUR ---
PT WORKED WITH THERAPIES. AMBULATES WITH STB ASSIST, GAIT BELT, AND WALKER. AM DOSE OF XANAX HELD PT WAS VERY DROWSY. HERE TO VISIT. CALL LIGHT IN REACH. CHAIR/BED ALARM ON.
[2020-03-11 19:53] VITALS: BP 125/53
--- NOTE | 2020-03-12 02:03 | NUR ---
ASSUMED CARE AT 1920. PATIENT RESTING IN RECLINER. UP WITH SBA, GAIT BELT, WALKER. VOIDS PER TOILET AND DOES OWN CARES. TAKES PILLS WHOLE IN APPLESAUCE. USED CALL LIGHT FOR HELP IN MAKING PHONE CALL TO AT . MEDICATED FOR PAIN, SEE APR. BED ALARM ON. HOURLY ROUNDS CONTINUE. CALL LITE IN REACH.
[2020-03-12 04:21] LABS: CALCIUM 9.3 mg/dL (8.5-10.1); CREATININE 0.9 mg/dL (0.6-1.3); POTASSIUM 4.1 mmol/L (3.5-5.1)
--- NOTE | 2020-03-12 06:11 | NUR ---
SLEPT MOST OF THE NIGHT EXCEPT TO GET UP TO VOID. UP WITH CGA, GAIT BELT AND WALKER. WAS A LITTLE UNSTEADY AT LAST VOID, BUT PATIENT CORRECTED SELF. VOIDS PER TOILET, DOES OWN HYGIENE. BED ALARM ON. HOURLY ROUNDS CONTINUE. CALL LITE IN REACH.
[2020-03-12 07:23] VITALS: BP 158/81
--- NOTE | 2020-03-12 16:26 | NUR ---
TEAM [facility] MEETING HELD THIS WEEK. CM INFORMED PT AND SPOUSE OF MEETING AND PLAN TO RE-TEAM AND HAVE THE PT REMAIN ON THE UNIT AND CONTINUE THERAPIES FOR ANOTHER WEEK. CM WILL REMAIN AVAILABLE TO ASSIST AND FOLLOW NEEDED.
--- NOTE | 2020-03-12 17:48 | NUR ---
ASSESSMENT COMPLETED DOCUMENTED THIS MORNING. PATIENT STATED THAT SHE WOULD LIKE TO GET UP AND OUT HER ROOM TO WALK AND GET SOME EXERCISE TODAY. EVERYTIME NURSING APPROACHED HER AND OFFERRED TO GET UP SHE DECLINED AND STATED SHE WAS TOO TIRED AND WANTED TO SLEEP.
[2020-03-12 20:00] VITALS: BP 95/47
--- NOTE | 2020-03-13 05:11 | NUR ---
ASSUMED PT CARE AT 1930. PT ALERT AND ORIENTED X4, POLITE AND COOPERATIVE WITH CARES. PT SITTING UP IN RECLINER AT SHIFT CHANGE. TRANSFERS WITH GB, WALKER AND MIN ASSIST OF ONE. PT WENT FOR A WALK IN THE CAST WITH TECH BEFORE BED. TAKES PILLS WHOLE IN APPLESAUCE WITHOUT DIFFICULTY. ASSISTED PT WITH PHONE TO CALL AT . SLEPT WELL OVERNIGHT. CALL LIGHT IN REACH, BED ALARM ON FOR SAFETY. HOURLY ROUNDING IN PROGRESS, WILL CONTINUE TO MONITOR.
[2020-03-13 07:38] VITALS: BP 101/42
--- NOTE | 2020-03-13 17:44 | NUR ---
ASSESSMENT COMPLETED DOCUMENTED THIS MORNING. PATIENT HAS BEEN UP IN RECLINER FOR MOST ALL OF THE DAY. AT THE BEDSIDE FOR SUPPORT. PATIENT HAS INITIATED HER KNITTING HOBBY THAT MEANS SO MUCH TO HER AND STATES IT HAS MADE HER HAPPY THAT SHE IS ABLE TO DO IT AGAIN. IS AMBULATING TO AND FROM THE BR TO VOID AND HAS REMAINED CONT ALL DAY OF B&B.
[2020-03-13 20:00] VITALS: BP 107/69
--- NOTE | 2020-03-14 05:19 | NUR ---
ASSUMED PT CARE AT 1930. PT SITTING UP IN RECLINER AT SHIFT CHANGE, UP WITH ASSIST OF ONE, GAIT BELT AND WALKER TO BATHROOM. STOOL X1 THIS SHIFT. TAKES PILLS WHOLE IN APPLESAUCE WITHOUT DIFFICULTY. SLEPT WELL OVERNIGHT. CALL LIGHT IN REACH, BED ALARM ON FOR SAFETY. HOURLY ROUNDING IN PROGRESS, WILL CONTINUE TO MONITOR.
[2020-03-14 07:33] VITALS: BP 124/59
[2020-03-14 08:12] LABS: ABSOLUTE BASOPHILS 0.2 thou/uL (0.0-0.2); ABSOLUTE EOSINOPHILS 0.4 thou/uL (0.0-0.7); ABSOLUTE LYMPHOCYTES 2.8 thou/uL (0.8-5.3); ABSOLUTE MONOCYTES 1.3 thou/uL (0.0-1.2); ABSOLUTE NEUTROPHILS 8.1 thou/uL (1.6-8.1); BASOPHILS 1.3 %; HEMATOCRIT 33.3 % (37.0-47.0); HEMOGLOBIN 11.2 gm/dL (12.0-15.0); LYMPHOCYTES 21.6 %; MCH 30.2 pg (26.0-34.0); MCHC 33.7 g/dL (28.0-37.0); MCV 89.7 fL (80.0-100.0); MONOCYTES 10.4 %; MPV 7.1 fl. (7.2-11.1); NUCLEATED RBCS 0 /100WBC; PLATELET COUNT* 380 thou/uL (150-400); POLYS 63.7 %; RBC 3.71 mil/uL (4.20-5.00); RDW-CV 14.5 % (10.5-14.5); WBC 12.8 thou/uL (4.0-11.0)
[2020-03-14 08:36] LABS: CALCIUM 8.9 mg/dL (8.5-10.1); CREATININE 0.9 mg/dL (0.6-1.3); POTASSIUM 4.4 mmol/L (3.5-5.1)
--- NOTE | 2020-03-14 16:53 | NUR ---
ALERT AND ORIENTED X4. UP WITH 1 ASSIST, GAIT BELT AND WALKER. CONTINUES ON SCHEDULED PAIN MEDICATION. TAKES PILLS WHOLE IN APPLESAUCE. CONTINENT OF BOWEL AND BLADDER. USES CALL LIGHT FOR ASSIST. BED ALARM AND CHAIR ALARM USED.
[2020-03-14 20:00] VITALS: BP 109/63
--- NOTE | 2020-03-15 05:43 | NUR ---
ASSUMED CARES AT 1920. ALERT AND ORIENTED BUT FORGETFUL. PILLS WITH APPLESAUCE. MIN ASSIST WITH GAIT BELT AND WALKER. UP TO BATHROOM. EPISODE OF NAUSEA. ZOFRAN GIVEN. SLEPT WELL. CALL LIGHT IN REACH AND BED ALARM ON.
[2020-03-15 08:00] VITALS: BP 104/47
--- NOTE | 2020-03-15 16:31 | NUR ---
PATIENT COMPLETED THERAPIES ORDERED. UP TO RECLINER WITH ASSISTANCE OF 1, GAIT BELT AND WALKER. SCHED XANAX AND OXY IR GIVEN, HELD WHEN PATIENT NOTED TO BE SLEEPING. PATIENT GIVEN PRN ZOFRAN X 1 FOR NAUSEA. PATIENT C/O EDEMA IN FEET, 1+ NOTED. PATIENT INSTRUCTED TO ELEVATED FEET WHILE IN RECLINER AND IN BED.
[2020-03-15 20:00] VITALS: BP 116/60
[2020-03-16 04:42] LABS: HEMATOCRIT 28.6 % (37.0-47.0); HEMOGLOBIN 9.6 gm/dL (12.0-15.0); MCH 29.9 pg (26.0-34.0); MCHC 33.6 g/dL (28.0-37.0); MCV 88.8 fL (80.0-100.0); RBC 3.21 mil/uL (4.20-5.00); RDW-CV 14.5 % (10.5-14.5); WBC 9.1 thou/uL (4.0-11.0)
--- NOTE | 2020-03-16 05:00 | NUR ---
ASSUMED CARES AT 1920. ALERT AND ORIENTED. BUT FORGETFUL. PILLS WHOLE IN APPLESAUCE. CHRONIC HEADACHES. SCHEDULED OXY GIVEN. MIN ASSIST WITH GAIT BELT AND WALKER. UP TO BATHROOM. SOME CUEING NEEDED WITH AMBULATION. HAD NAUSEA AND VOMITING AT BEDTIME. ZOFRAN GIVEN. SLEPT WELL AFTERWARDS. CALL LIGHT IN REACH AND BED ALARM ON.
[2020-03-16 05:10] LABS: CALCIUM 8.6 mg/dL (8.5-10.1); CREATININE 0.7 mg/dL (0.6-1.3); POTASSIUM 4.1 mmol/L (3.5-5.1)
[2020-03-16 07:50] VITALS: BP 116/55
--- NOTE | 2020-03-16 15:58 | NUR ---
PT WORKED WITH THERAPIES. SCHEDULED PAIN MEDICATION GIVEN. PT DID SOME FAMILY EDUCATION TODAY. TO COMPLETE EDUCATION TOM[place]. PT TO DISCHARGE HOME WITH ON SATURDAY. PT UP WITH TOUCH ASSIST, GAIT BELT AND WALKER. CHAIR ALARM ON. CALL LIGHT IN REACH.
--- NOTE | 2020-03-16 16:03 | NUR ---
TEAM [facility] MEETING HLED TODAY. PT AND SPOUSE INFORMED OF MEETING AND PLAN TO RE-TEAM AND D/C PT NEXT SATURDAY. PT AND SPOUSE DISAGREE WITH PLAN AND INFORM OF REQUEST FOR PT TO D/C TODAY. PHYSICAN INFORMS THAT HE WOULD LIKE FOR PT AND SPOUSE TO HAVE FAMILY TRAINING AND D/C HOME SATURDAY WITH HH. PT AND SPOUSE IN AGREEMENT WITH PLAN. PT AND SPOUSE REQUEST HH WITH [facility]. CM FAXED PT'S CLINICAL INFO TO [facility]. PT HAS NEEDED DME. CM WILL REMAIN AVAILABLE TO ASSIST AND FOLLOW NEEDED.
[2020-03-16 16:28] VITALS: BP 116/55
[2020-03-16 20:16] VITALS: BP 102/51; BP 120/32
--- NOTE | 2020-03-17 07:16 | NUR ---
ASSUMED PT CARE AT 1930. ASSESSMENT COMPLETED CHARTED. ABLE TO MAKE NEEDS KNOWN. UP WITH 1 TO BSC. 2 BOUTS OF NAUSEA WITH BURPING LAST NIGHT AND GAVE PRN ZOFRAN, C/O CHRONIC HEADACHE AND GAVE SCHEDULED PAIN MEDICATIONS. PT RESTING IN BED AT THIS TIME. WILL CONTINUE TO MONITOR.
[2020-03-17 08:17] VITALS: BP 92/44
--- NOTE | 2020-03-17 18:32 | NUR ---
ASSESSMENT COMPLETED DOCUMENTED THIS MORNING. PATIENT IS UP AND AMBULATING TO AND FROM THE BR WITH ONE CGA/GB/FWW. QUITE SEDATED THIS AFTERNOON AND 1500 ALPRAZOLAM WAS HELD. ANXIOUS TO GO HOME TOMORROW. PARTICIPATING WITH THERAPY AND PERFORMED A CAR TRANSFER TODAY WITH PRESENT.
[2020-03-17 19:30] VITALS: BP 100/57
--- NOTE | 2020-03-18 04:35 | NUR ---
ASSUMED PT CARE AT 1930. PT ALERT AND ORIENTED X4, POLITE AND COOPERATIVE WITH CARES. PT SITTING UP IN RECLINER AT SHIFT CHANGE. TAKES PILLS WHOLE IN APPLESAUCE. UP WITH ASSIST OF ONE TO BATHROOM TO VOID. C/O NAUSEA AT SHIFT CHANGE, PRN ZOFRAN GIVEN. PT ON SCHEDULED PAIN MEDICATION FOR CHRONIC HEADACHE AND SCHEDULED XANAX. PT ANTICIPATING DISCHARGE HOME TODAY. CALL LIGHT IN REACH, BED ALARM ON FOR SAFETY. HOURLY ROUNDING IN PROGRESS, WILL CONTINUE TO MONITOR.
[2020-03-18 08:06] VITALS: BP 105/52
[2020-03-18 10:30] VITALS: BP 116/55
[2020-03-18 10:38] VITALS: BP 116/55
[2020-03-18 10:39] VITALS: BP 116/55
[2020-03-18 11:36] VITALS: BP 116/55
--- NOTE | 2020-03-18 12:12 | NUR ---
ASSESSMENT COMPLETED DOCUMENTED THIS MORNING. PATIENT UP IN RECLINER AT THE BEDSIDE AND EXPRESSES HER HAPPINESS TO GO HOME TODAY. SPEECH AND OT PERFORMED LAST SESSIONS WITH PATIENT PRIOR TO DC. 1155 DC INSTRUCTIONS, MEDICATION TEACHING AND PRESCRIPTIONS GIVEN TO PATIENT AND WITH UNDERSTANDING VERBALIZED AND SIGNATURE OBTAINED. 1210 DC VIA W/C ACCOMPANIED BY NURSING AND . PACKED UP ALL PERSONAL BELONGINGS AND TOOK TO CAR.
--- NOTE | 2020-03-18 14:13 | NUR ---
I have reviewed the documentation by RAJAN ROUSSEAU from 03/16/20 to 03/18/20 and I concur with it. YIN CURTIS
--- NOTE | 2020-03-18 14:15 | NUR ---
CM SPOKE TO THE PT AND HER SPOUSE TO DISCUSS D/C PLANNING AND HER D/C HOME TODAY WITH [facility]. CM FAXED PT'S D/C ORDERS TO [facility]. PT HAS ALL NEEDED DME AT HOME. PT'S SPOUSE HERE AT THE BEDSIDE AND HAS COMPLETED FAMILY TRAINING. CM WILL REMAIN AVAILABLE TO ASSIST AND FOLLOW NEEDED. [facility] PHONE: [phone] FAX: [phone]
== END 2020-03-18 12:10 | disposition home health service (06) | DRG 56 ==
LOC: M.REH 17:01
PROVIDERS: Family Medicine; Internal Medicine; ADMIT Physical Medicine & Rehabilitation; ATTEND Physical Medicine & Rehabilitation
DX: I69.354 Hemiplegia and hemiparesis following cerebral infarction affecting left non-dominant side (principal); I63.9 Cerebral infarction, unspecified; G92 Toxic encephalopathy; N39.0 Urinary tract infection, site not specified; E87.1 Hypo-osmolality and hyponatremia; R29.810 Facial weakness; I10 Essential (primary) hypertension; R13.10 Dysphagia, unspecified; F43.10 Post-traumatic stress disorder, unspecified; F03.90 Unspecified dementia, unspecified severity, without behavioral disturbance, psychotic disturbance, mood disturbance, and anxiety; R47.1 Dysarthria and anarthria; E78.2 Mixed hyperlipidemia; F41.0 Panic disorder [episodic paroxysmal anxiety]; T50.905A Adverse effect of unspecified drugs, medicaments and biological substances, initial encounter; F41.1 Generalized anxiety disorder; G31.83 Neurocognitive disorder with Lewy bodies; I65.29 Occlusion and stenosis of unspecified carotid artery; Z88.8 Allergy status to other drugs, medicaments and biological substances; K59.00 Constipation, unspecified; Z88.1 Allergy status to other antibiotic agents; Z98.49 Cataract extraction status, unspecified eye; Z90.49 Acquired absence of other specified parts of digestive tract; Z90.710 Acquired absence of both cervix and uterus; Z82.3 Family history of stroke; Z88.6 Allergy status to analgesic agent; Z79.82 Long term (current) use of aspirin; Z79.899 Other long term (current) drug therapy; Y92.89 Other specified places as the place of occurrence of the external cause